=== PATIENT | male | born 1995 | race Hispanic/Latino ===

== ENCOUNTER 2018-07-17 23:31 | Emergency (ER) | payer OTHER ==
[2018-07-18] MEDS ORDERED: DiphenhydrAMINE HCL 50 MG/ML VIAL ONE (00:10)
[2018-07-18] MEDS ORDERED: METOCLOPRAMIDE 10 MG/2 ML VIAL ONE (00:10)
[2018-07-18] MEDS ORDERED: ACETAMINOPHEN 325 MG TAB ONE (00:11)
[2018-07-18] MEDS ORDERED: ONDANSETRON HCL 4 MG/2 ML VIAL ONE (00:11)
[2018-07-18] MEDS ORDERED: KETOROLAC TROMETHAMINE 30MG/ML ONE (00:11)
[2018-07-18 00:42] LABS: BASOPHILS % (AUTO) 0.4 % (0.0-5.0); EOSINOPHILS % (AUTO) 0.1 % (0.0-8.0); HEMATOCRIT 41.5 % (42-54); LYMPHOCYTES % (AUTO) 8.4 % (21.0-51.0); MEAN CORPUSCULAR HEMOGLOBIN 29.6 pg (27.0-33.0); MEAN CORPUSCULAR HGB CONC 33.9 g/dL (32.0-36.0); MEAN CORPUSCULAR VOLUME 87.3 fL (79-99); MONOCYTES % (AUTO) 11.6 % (3.0-13.0); NEUTROPHILS % (AUTO) 79.5 % (40.0-77.0); PLATELET COUNT (AUTO) 144 K/uL (130-400); RED BLOOD CELL COUNT(AUTO) 4.75 MIL/uL (4.50-6.20); RED CELL DISTRIBUTION WIDTH 13.8 % (11.0-15.5); WHITE BLOOD COUNT (AUTO) 9.1 K/uL (4.8-10.8)
[2018-07-18 00:52] LABS: APPEARANCE,URINE Clear (CLEAR); BILIRUBIN,URINE Negative (NEGATIVE); COLOR,URINE Yellow (YELLOW); GLUCOSE, URINE (UA) Negative (NEGATIVE); KETONES,URINE Trace mg/dL (NEGATIVE); LEUKOCYTE ESTERASE ,URINE Negative (NEGATIVE); NITRATE,URINE Negative (NEGATIVE); OCCULT BLOOD,URINE Negative (NEGATIVE); PH,URINE 5.5 (5.0-8.0); PROTEIN,URINE Trace mg/dL (NEGATIVE)
[2018-07-18 00:52] LABS: RAPID GROUP A STREP NEGATIVE (NEGATIVE)
[2018-07-18 00:56] LABS: CREATININE 1.2 mg/dL (0.5-1.5); POTASSIUM 3.3 mmol/L (3.5-5.1)
[2018-07-18 01:08] LABS: ALBUMIN 3.5 g/dL (3.5-5.0); BILIRUBIN,TOTAL 0.5 mg/dL (0.2-1.0); TOTAL PROTEIN, SERUM 7.2 g/dL (6.0-8.3)
[2018-07-18] MEDS ORDERED: DOXYCYCLINE HYCLATE 100 MG TABLET PO ONE (01:19)
[2018-07-18] MEDS ORDERED: SODIUM CHLORIDE 0.9% 1000ML 1,000 ML IV ONE (01:20)
== END 2018-07-18 01:59 | disposition home or self-care (01) ==
LOC: EDH 23:31
DX: A75.2 Typhus fever due to Rickettsia typhi (principal)
CPT/HCPCS: 36415; 80053; 81003; 83605; 85025; 86757; 87040 ×2; 87088; 87804 ×2; 87880; 96374; 96375; 99284; J1200; J1885; J2405; J2765; J7030

== ENCOUNTER 2022-11-19 17:41 | Emergency (ER) | payer OTHER ==
[~2022-11-19] VITALS: Ht 185.4 cm; Wt 124.7 kg
[2022-11-19] MEDS ORDERED: CYCL-309 PO (21:22)
[2022-11-19] MEDS ORDERED: IBUP-1493 PO (21:22)
[2022-11-19 22:44] VITALS: BP 121/86; PULSE 70; RESP 16; O2SAT 97
== END 2022-11-19 22:56 | disposition home or self-care (01) ==
LOC: EDH 17:41
DX: M54.50 Low back pain, unspecified (principal)
CPT/HCPCS: 72100